=== PATIENT | male | born 1995 | race Caucasian/White ===

== ENCOUNTER 2018-11-10 09:51 | Emergency (ER) | payer MEDICAID ==
[2018-11-10 10:12] VITALS: BP 136/77
--- NOTE | 2018-11-10 10:14 | ED Physician Documentation ---
PD HPI UPPER EXT INJURY - Stated complaint Stated Complaint: PINKY INJURY - Chief complaint Chief Complaint: Ext Problem - History obtained from History obtained from: Patient - History of Present Illness Location: Left, Finger (little finger tip and middle part of finger.) Type of injury: Blunt / blow (he struck it against piece of metal unintentionally. pain and bruising mid to end of finger and with bruising under the nailbed/pressure pain there.) Timing - onset: Yesterday Timing - details: Abrupt onset, Still present Worsened by: Moving, Palpating Associated symptoms: Swelling, Discolored (bruising under the nailbed.). No: Weakness, Numbness Similar symptoms before: Has not had sx before Review of Systems Skin: denies: Laceration (s), Bite / sting Neurologic: denies: Focal weakness (feels stiff for movement due to swelling.), Numbness PD PAST MEDICAL HISTORY - Past Medical History Respiratory: None Musculoskeletal: None - Present Medications Home Medications: Ambulatory Orders Medication Instructions Recorded Confirmed Tramadol HCl 50 mg PO Q6H PRN #15 tablet 11/10/18 - Allergies Allergies/Adverse Reactions: Allergies Allergy/AdvReac Type Severity Reaction Status Date / Time No Known Drug Allergies Allergy Verified 11/10/18 10:10 PD ED PE NORMAL - Vitals Vital signs reviewed: Yes - General General: Alert and oriented X 3, No acute distress, Well developed/nourished - Derm Derm: Normal color, Warm and dry - Extremities Extremities: Other (left little finger with tenderness at DIP joint and also the nailbed, with obvious pressured blood dark purple, under the nail. Some lifting of the nail from bed. No bleeding externally nor any abrasions/lacs. He is able to flex and extend against resistance. ) Results - Vitals Vitals: Vital Signs - 24 hr 11/10/18 10:10 Temperature 36.5 C Heart Rate 84 Respiratory 18 Rate Blood Pressure 136/77 H O2 Saturation 100 Oxygen O2 Source Room air - Rads (name of study) xray finger Radiology: Prelim report reviewed (no fractures), See rad report Procedures - General procedure General procedure: Battery cautery used to make hole in nail, with outflow of dark watery blood. Finger feeling improved. PD MEDICAL DECISION MAKING - ED course Complexity details: reviewed results, considered differential, d/w patient Departure - Departure Disposition: 01 Home, Self Care Clinical Impression: Subungual hematoma Finger contusion Qualifiers: Encounter type: initial encounter Finger: little finger Damage to nail status: with damage Laterality: left Qualified Code(s): S60.152A - Contusion of left little finger with damage to nail, initial encounter Condition: Stable Record reviewed to determine appropriate education?: Yes Instructions: ED Contusion Finger, ED Hematoma Subungual Prescriptions: Tramadol HCl 50 mg PO Q6H PRN #15 tablet PRN Reason: Pain Comments: No fracture seen on x-ray. It obviously still can be sore for several days. The pressure out from under the nail will help a lot. Soak the finger periodically to promote more drainage out from under the nail. Limited use of the finger for the next several days or so as needed and use a finger splint. Tylenol or ibuprofen if needed for pains. Add tramadol if needed for worse pain. This should get better over a week or so. You ultimately will lose the nail but do not take it off until it loosens up enough to be ready to take off pain Ranjana. Discharge Date/Time: 11/10/18 11:18
[2018-11-10] MEDS ORDERED: NAPROXEN 250 MG TABLET PO STA (10:29)
--- NOTE | 2018-11-10 11:06 | XRAY Report ---
Reason: little finger injury yesterday Procedure Date: 11/10/2018 Accession Number: [id number] / [id number] Procedure: XR - Finger(s) LT CPT Code: FULL RESULT: EXAM: LEFT FIFTH DIGIT RADIOGRAPHY EXAM DATE: 11/10/2018 10:44 AM. CLINICAL HISTORY: Little finger injury yesterday. COMPARISON: None. TECHNIQUE: 3 views. FINDINGS: Bones: Normal. No fracture or bone lesion. Joints: Normal. No subluxations. Soft Tissues: Moderate left fifth finger swelling. IMPRESSION: 1. No fracture or malalignment. 2. Moderate left fifth finger swelling. 3. If patient remains symptomatic, recommend follow up in 10-14 days. [facility]
== END 2018-11-10 11:18 | disposition home or self-care (01) ==
LOC: ED 09:51
DX: S60.152A Contusion of left little finger with damage to nail, initial encounter (principal); W22.8XXA Striking against or struck by other objects, initial encounter
CPT/HCPCS: 11740; 73140; 99283; A9270